=== PATIENT | male | born 1970 | race Caucasian/White ===

== ENCOUNTER 2018-03-08 13:06 | Emergency (ER) | payer BC, OTHER ==
[~2018-03-08] VITALS: Ht 185.4 cm; Wt 100.8 kg
[2018-03-08 13:13] VITALS: TEMP 37.5; Ht 185.4 cm; Wt 100.8 kg
[2018-03-08] MEDS ORDERED: SODIUM CHLORIDE 0.9% 1000ML 1,000 ML IV ONE (13:30)
[2018-03-08 13:39] VITALS: O2SAT 95
[2018-03-08 13:42] LABS: BASO % 0.8 %; BASO ABS # 0.07 K/uL (0-0.2); EOS % 2.7 %; EOS ABS # 0.24 K/uL (0-0.5); HEMATOCRIT 52.8 % (42-52); IG# 0.02 K/uL (0.00-0.02); LYMPH % 16.6 %; LYMPH ABS # 1.45 K/uL (1.2-3.4); MEAN CELL VOLUME 87.6 fL (80-100); MEAN CORPUSCULAR HEMOGLOBIN 31.5 pg (25-34); MEAN PLATELET VOLUME 9.3 fL (7.4-10.4); MONO % 15.5 %; MONO ABS # 1.35 K/uL (0.11-0.59); NEUT % 64.2 %; PLATELET COUNT 198 K/uL (130-400); RED CELL DISTRIBUTION WIDTH CV 12.8 % (11.5-14.5); RED CELL DISTRIBUTION WIDTH SD 40.6 fL (36.4-46.3); WHITE BLOOD COUNT 8.73 K/uL (4.8-10.8)
[2018-03-08 13:59] LABS: ALBUMIN 4.7 gm/dl (3.4-5.0); CALCIUM 9.6 mg/dl (8.5-10.1); CREATININE 1.22 mg/dl (0.60-1.40); POTASSIUM 3.8 mmol/L (3.5-5.1)
[2018-03-08 14:10] LABS: TOTAL PROTEIN 8.8 gm/dl (6.4-8.2)
--- NOTE | 2018-03-08 14:12 | DIAGNOSTIC IMAGING REPORT ---
CHEST 2 VIEWS ROUTINE HISTORY: 47 years-old Male Hypertension acute hypertension COMPARISON: None available TECHNIQUE: PA and lateral views of the chest FINDINGS: Cardiomediastinal and hilar silhouettes are within normal limits. There is no pneumothorax, pleural effusion, focal airspace consolidation or overt pulmonary edema. The bones of the chest appear grossly intact. Multilevel endplate spurring about the spine. IMPRESSION: No acute process. The above report was generated using voice recognition software. It may contain grammatical, syntax or spelling errors. Electronically signed by: Urbano Kowalski M.D. 03/08/2018 2:11 PM Dictated Date/Time: 03/08/2018 2:10 PM
[2018-03-08 15:21] VITALS: BP 174/116; PULSE 91; O2SAT 95
--- NOTE | 2018-03-08 17:49 | EMERGENCY ROOM VISIT NOTE ---
History First contact with patient: 13:16 Chief Complaint: HYPERTENSION Stated Complaint: HIGH BP 183/120 History of Present Illness The patient is a 47 year old male who presents to the Emergency Room with complaints of elevated blood pressure at home at 183/120. The patient states that he has had some episodic hypertensive episodes in the past, and will often check his blood pressure at home every few weeks. He does this at the instruction of his primary care physician, and is not currently on any antihypertensive medications. The patient is complaining of a cough that will cause him some chest discomfort and intermittent shortness of breath. The patient is not having lightheadedness, dizziness, numbness, or paresthesias. He does not take supplements or [id number] medications. He rates his current discomfort as 0/10. Review of Systems More than 10 systems were reviewed and otherwise negative with the exception of history of present illness. Past Medical/Surgical History No chronic medical disease Family History No pertinent family history Social History Smoking Status: Never Smoker Housing Status: lives with family Occupation Status: employed Current/Historical Medications No Active Prescriptions or Reported Meds Physical Exam Vital Signs Date Time Temp Pulse Resp B/P (MAP) Pulse Ox O2 Delivery O2 Flow Rate FiO2 03/08/18 15:21 91 23 174/116 95 03/08/18 15:10 91 23 174/116 95 Room Air 03/08/18 13:49 102 03/08/18 13:39 95 Room Air 03/08/18 13:13 37.5 118 18 199/111 95 Room Air Physical Exam VITALS: Vitals are noted on the nurse's note and reviewed by myself. Vital signs with noted hypertension GENERAL: Well-developed, well-nourished, male, who is in no acute distress and resting comfortably. Patient is cooperative with the examination. HEAD: Normocephalic atraumatic. EARS: External ear normal. External auditory canals clear, tympanic membranes pearly holman without erythema or effusion bilaterally. EYES: Pupils equal round and reactive to light and accommodation. Conjunctivae without injection, sclerae without icterus. Extraocular movements intact. NOSE: Patent, turbinates without inflammation or discharge. MOUTH: Mucous membranes moist. Tonsils are not enlarged. Pharynx without erythema, blood, or exudate. Uvula midline. Airway patent. NECK: Supple without nuchal rigidity. No lymphadenopathy. No thyromegaly. Cervical spine is nontender. HEART: Regular rate and rhythm without murmurs gallops or rubs. LUNGS: Clear to auscultation bilaterally without wheezes, rales or rhonchi. No retractions or accessory muscle use. ABDOMEN: Positive normal bowel sounds x 4. Soft, nontender, without masses or organomegaly. No guarding or rebound tenderness. MUSCULOSKELETAL: No muscle atrophy, erythema, or edema noted. Full range of motion in all extremities. No tenderness to palpation. Normal gait. Strength 5/5 throughout. NEURO: Patient was alert and oriented to person place and time. CN II through XII grossly intact. No focal neurological deficits. Deep tendon reflexes 2+ throughout. SKIN: The skin was without rashes, erythema, edema, or bruising. Capillary refill less than 2 seconds. Medical Decision & Procedures ER Provider Diagnostic Interpretation: CHEST 2 VIEWS ROUTINE HISTORY: 47 years-old Male Hypertension acute hypertension COMPARISON: None available TECHNIQUE: PA and lateral views of the chest FINDINGS: Cardiomediastinal and hilar silhouettes are within normal limits. There is no pneumothorax, pleural effusion, focal airspace consolidation or overt pulmonary edema. The bones of the chest appear grossly intact. Multilevel endplate spurring about the spine. IMPRESSION: No acute process. Laboratory Results 03/08/18 13:30 Red Blood Count 6.03, Mean Corpuscular Volume 87.6, Mean Corpuscular Hemoglobin 31.5, Mean Corpuscular Hemoglobin Concent 36.0, Mean Platelet Volume 9.3, Neutrophils (%) (Auto) 64.2, Lymphocytes (%) (Auto) 16.6, Monocytes (%) (Auto) 15.5, Eosinophils (%) (Auto) 2.7, Basophils (%) (Auto) 0.8, Neutrophils # (Auto ) 5.60, Lymphocytes # (Auto) 1.45, Monocytes # (Auto) 1.35, Eosinophils # (Auto ) 0.24, Basophils # (Auto) 0.07 03/08/18 13:30 Test 03/08/18 13:30 03/08/18 13:36 White Blood Count 8.73 K/uL (4.8-10.8) Red Blood Count 6.03 M/uL (4.7-6.1) Hemoglobin 19.0 g/dL (14.0-18.0) Hematocrit 52.8 % (42-52) Mean Corpuscular Volume 87.6 fL (80-100) Mean Corpuscular Hemoglobin 31.5 pg (25-34) Mean Corpuscular Hemoglobin Concent 36.0 g/dl (32-36) Platelet Count 198 K/uL (130-400) Mean Platelet Volume 9.3 fL (7.4-10.4) Neutrophils (%) (Auto) 64.2 % Lymphocytes (%) (Auto) 16.6 % Monocytes (%) (Auto) 15.5 % Eosinophils (%) (Auto) 2.7 % Basophils (%) (Auto) 0.8 % Neutrophils # (Auto) 5.60 K/uL (1.4-6.5) Lymphocytes # (Auto) 1.45 K/uL (1.2-3.4) Monocytes # (Auto) 1.35 K/uL (0.11-0.59) Eosinophils # (Auto) 0.24 K/uL (0-0.5) Basophils # (Auto) 0.07 K/uL (0-0.2) RDW Standard Deviation 40.6 fL (36.4-46.3) RDW Coefficient of Variation 12.8 % (11.5-14.5) Immature Granulocyte % (Auto) 0.2 % Immature Granulocyte # (Auto) 0.02 K/uL (0.00-0.02) D-Dimer 320 ug/L FEU (0-500) Anion Gap 8.0 mmol/L (3-11) Est Creatinine Clear Calc Drug Dose 92.4 ml/min Estimated GFR () 80.8 Estimated GFR (Non- 69.7 BUN/Creatinine Ratio 13.1 (10-20) Calcium Level 9.6 mg/dl (8.5-10.1) Magnesium Level 2.0 mg/dl (1.8-2.4) Total Bilirubin 0.9 mg/dl (0.2-1) Aspartate Amino Transf (AST/SGOT) 20 U/L (15-37) Alanine Aminotransferase (ALT/SGPT) 35 U/L (12-78) Alkaline Phosphatase 65 U/L (45-117) Total Protein 8.8 gm/dl (6.4-8.2) Albumin 4.7 gm/dl (3.4-5.0) Globulin 4.1 gm/dl (2.5-4.0) Albumin/Globulin Ratio 1.1 (0.9-2) Thyroid Stimulating Hormone (TSH) 1.100 uIu/ml (0.300-4.500) Bedside Troponin I < 0.030 ng/ml (0-0.045) Medications Administered Medications (Trade) Dose Ordered Sig/Silvia Route Start Time Stop Time Status Last Admin Dose Admin Sodium Chloride 1,000 ml @ 999 mls/hr Q1H1M ONCE IV 03/08/18 13:30 03/08/18 14:30 DC 03/08/18 13:43 999 MLS/HR ED Course Physical exam and history were performed. Nursing notes, EMR, and Medication List were personally reviewed. Patient appears to have an elevated blood pressure reading at home. He has had some cough symptoms for the past few days, but does not have other significant symptoms. EKG was performed and was sinus tachycardia 103 bpm without evidence of obvious ST elevation per my interpretation. IV access was established and labs are obtained. The patient was hydrated with normal saline. X-ray was performed. The patient was reevaluated multiple times throughout the course of his stay. His blood work is as above and was reviewed. He does not have a significantly elevated white blood cell count, gross anemia, bandemia, or significant electrolyte imbalance. Troponin and d-dimer 1 are both negative. His blood pressure did improve with saline. X-ray was reviewed by myself and radiology showing no acute process. I had a lengthy discussion with the patient and his regarding his results. Overall the patient does not appear to have an acute cardiopulmonary event contributing to his symptoms. His blood work is fairly unremarkable, and I do not appreciate an obvious infection. The patient is felt to be stable for discharge home. His symptoms seem to most correlate with an elevated blood pressure reading or certainly essential hypertension. The patient does have a blood pressure cuff at home that he is to continue to use and keep a diary of his readings. The patient will be asked to follow with his primary care physician here in the next week for further care and management. He was otherwise invited back to the ER with any new, worsening, or concerning symptoms. The chart was completed utilizing [employer] Voice Recognition Software. Grammatical errors, random word insertions, pronoun errors, and incomplete sentences are an occasional consequence of this system due to software limitations, ambient noise, and hardware issues. Any formal questions or concerns about the content, text, or information contained within the body of this dictation should be directly addressed to the provider for clarification. . Medical Decision Differential diagnosis includes, but is not limited to: Myocardial infarction, hypertensive urgency, essential hypertension, dysrhythmia, pericarditis, pneumothorax, aortic aneurysm/dissection, DVT/PE, anxiety, GERD, PUD, electrolyte imbalance, thyroid disorder, pneumonia, bronchitis, pancreatitis, and others Blood Pressure Screening Patient's blood pressure: Elevated blood pressure Blood pressure disposition: Referred to PCP Impression Primary Impression: Elevated blood pressure reading Departure Information Dispostion Home / Self-Care Condition GOOD Prescriptions No Active Prescriptions or Reported Meds Forms HOME CARE DOCUMENTATION FORM, IMPORTANT VISIT INFORMATION Patient Instructions [facility] Additional Instructions You were seen and evaluated today on an emergency basis only. This is not a substitute for, or an effort to provide, complete comprehensive medical care. It is not possible to recognize and treat all injuries or illnesses in a single emergency department visit. For this reason it is recommended that you followup with your primary care physician in the next 1-2 weeks for recheck of your condition. Continue to monitor your blood pressure at home. Keep a daily diary as this will help decide if medication is indicated for you. You are welcome to return to the emergency department anytime with new, worsening, or concerning symptoms.
== END 2018-03-08 15:21 | disposition home or self-care (01) ==
LOC: C.EDB 13:07 → C.EDC 15:21
DX: R03.0 Elevated blood-pressure reading, without diagnosis of hypertension (principal)